=== PATIENT | male | born 1980 | race Caucasian/White ===

== ENCOUNTER 2021-07-16 15:34 | Inpatient (IN) | payer OTHER ==
[2021-07-16] MEDS ORDERED: BISMUTH SUBSALICYLATE 524 MG/30 ML PO PRN (16:57)
[2021-07-16] MEDS ORDERED: BENZOCAINE/MENTHOL (CHLORASEPTIC ) LOZENGE MM PRN (16:57)
[2021-07-16] MEDS ORDERED: hydrOXYzine PAMOATE 25 MG CAPSULE (FP) PO PRN (16:57)
[2021-07-16] MEDS ORDERED: MAG HYDROX/AL HYDROX/SIMETH 30 ML UNIT-DOSE CUP PO PRN (16:57)
[2021-07-16] MEDS ORDERED: LOPERAMIDE HCL 2 MG CAPSULE PO PRN (16:57)
[2021-07-16] MEDS ORDERED: ACETAMINOPHEN 325 MG TABLET (FP) PO PRN ×2 (16:57)
[2021-07-16] MEDS ORDERED: DICYCLOMINE HCL 10 MG CAPSULE PO PRN (16:57)
[2021-07-16] MEDS ORDERED: ONDANSETRON *ODT* 4 MG TABLET SL PRN (16:57)
[2021-07-16] MEDS ORDERED: MAGNESIUM HYDROX 2400MG/30ML ORAL SUSPENSION 30 ML CUP PO PRN (16:57)
[2021-07-16] MEDS ORDERED: MAGNESIUM CITRATE 300 ML BOTTLE PO PRN (16:57)
[2021-07-16 17:25] VITALS: BMI 21.9
[2021-07-16] MEDS: NICOTINE 10 MG CARTRIDGE (INHALER) IH PRN ×2 (19:25→22:26)
[2021-07-16] MEDS: IBUPROFEN 400 MG TABLET (FP) PO PRN (19:26)
[2021-07-16] MEDS: chlordiazePOXIDE HCL 25 MG CAPSULE PO SCH ×2 (19:27→22:25)
[2021-07-16] MEDS: METHOCARBAMOL 500 MG TABLET PO PRN (19:27)
[2021-07-16] MEDS: MELATONIN 5 MG TABLETS PO SCH (22:23)
[2021-07-16] MEDS: cloNIDine HCL 0.1 MG TABLET PO SCH (22:24)
[2021-07-16] MEDS: DOCUSATE SODIUM 100 MG CAPSULE (FP) PO SCH (22:24)
[2021-07-16] MEDS: THIAMINE HCL 100 MG TABLET (FP) PO SCH (22:24)
[2021-07-17] MEDS: NICOTINE POLACRILEX 4 MG GUM BUC PRN ×3 (04:01→18:21)
[2021-07-17] MEDS: chlordiazePOXIDE HCL 25 MG CAPSULE PO SCH ×4 (05:23→22:11)
[2021-07-17] MEDS: DOCUSATE SODIUM 100 MG CAPSULE (FP) PO SCH ×3 (05:24→23:36)
[2021-07-17] MEDS: METHOCARBAMOL 500 MG TABLET PO PRN ×3 (07:27→22:09)
[2021-07-17] MEDS: chlordiazePOXIDE HCL 25 MG CAPSULE PO PRN ×2 (07:27→13:10)
[2021-07-17] MEDS ORDERED: NICOTINE 21 MG/24 HOURS TOPICAL PATCH TD SCH (10:00)
[2021-07-17] MEDS: cloNIDine HCL 0.1 MG TABLET PO SCH ×2 (10:12→22:09)
[2021-07-17] MEDS: PRENATAL VITAMINS W/ FOLIC ACID TABLET (FP) PO SCH (10:12)
[2021-07-17 12:42] LABS: HEMATOCRIT 44.3 % (35.4-49); HEMOGLOBIN 14.6 GM/dL (11.7-16.9); MCH 31.5 pg (25.7-33.7); MEAN CELL VOLUME 95.6 fl (80-96); MEAN PLT VOLUME 7.1 fl (7.5-11.1); PLATELET COUNT 182 10^3/uL (134-434); RBC 4.63 M/mm3 (4.00-5.60); RDW 13.7 % (11.9-15.9); WHITE BLOOD COUNT 4.7 K/mm3 (4.0-10.0)
[2021-07-17 12:53] LABS: CALCIUM 9.6 mg/dL (8.5-10.1)
[2021-07-17 12:54] LABS: ALBUMIN 4.4 g/dl (3.4-5.0); BLOOD UREA NITROGEN 10.8 mg/dL (7-18)
[2021-07-17 12:57] LABS: CREATININE 0.8 mg/dL (0.55-1.3)
[2021-07-17 13:02] LABS: BILIRUBIN,TOTAL 1.2 mg/dL (0.2-1); TOT PROT 7.9 g/dl (6.4-8.2)
[2021-07-17] MEDS: GABAPENTIN 300 MG CAPSULE PO SCH ×2 (13:03→22:09)
[2021-07-17] MEDS: NICOTINE 10 MG CARTRIDGE (INHALER) IH PRN (17:49)
[2021-07-17] MEDS: IBUPROFEN 400 MG TABLET (FP) PO PRN (18:20)
[2021-07-17] MEDS: THIAMINE HCL 100 MG TABLET (FP) PO SCH (22:09)
[2021-07-17] MEDS: ARIPiprazole 10 MG TABLET PO SCH (22:09)
[2021-07-17] MEDS: MELATONIN 5 MG TABLETS PO SCH (22:10)
[2021-07-18] MEDS: GABAPENTIN 300 MG CAPSULE PO SCH (05:45)
[2021-07-18] MEDS: chlordiazePOXIDE HCL 25 MG CAPSULE PO SCH ×4 (05:45→22:38)
[2021-07-18] MEDS: DOCUSATE SODIUM 100 MG CAPSULE (FP) PO SCH ×3 (05:52→22:36)
[2021-07-18] MEDS: NICOTINE 10 MG CARTRIDGE (INHALER) IH PRN ×3 (06:06→17:26)
[2021-07-18] MEDS: PRENATAL VITAMINS W/ FOLIC ACID TABLET (FP) PO SCH (10:28)
[2021-07-18] MEDS: cloNIDine HCL 0.1 MG TABLET PO SCH ×2 (10:28→22:37)
[2021-07-18] MEDS: NICOTINE POLACRILEX 4 MG GUM BUC PRN ×6 (10:31→22:41)
[2021-07-18] MEDS: GABAPENTIN 400 MG CAPSULE PO SCH ×3 (13:04→22:38)
[2021-07-18 16:08] LABS: SARS-CoV-2 NAA Not Detected (Not Detected)
[2021-07-18] MEDS: chlordiazePOXIDE HCL 25 MG CAPSULE PO PRN (19:56)
[2021-07-18] MEDS: MELATONIN 5 MG TABLETS PO SCH (22:38)
[2021-07-18] MEDS: ARIPiprazole 10 MG TABLET PO SCH (22:38)
[2021-07-18] MEDS: THIAMINE HCL 100 MG TABLET (FP) PO SCH (22:38)
[2021-07-19] MEDS ORDERED: chlordiazePOXIDE HCL 10 MG CAPSULE PO PRN
[2021-07-19] MEDS: DOCUSATE SODIUM 100 MG CAPSULE (FP) PO SCH ×2 (05:35→13:20)
[2021-07-19] MEDS: chlordiazePOXIDE HCL 10 MG CAPSULE PO SCH ×2 (05:35→10:07)
[2021-07-19] MEDS: NICOTINE POLACRILEX 4 MG GUM BUC PRN ×2 (08:26→10:37)
[2021-07-19] MEDS: GABAPENTIN 400 MG CAPSULE PO SCH ×2 (10:07→13:20)
[2021-07-19] MEDS: PRENATAL VITAMINS W/ FOLIC ACID TABLET (FP) PO SCH (10:07)
[2021-07-19] MEDS: cloNIDine HCL 0.1 MG TABLET PO SCH (10:07)
[2021-07-19] MEDS: METHOCARBAMOL 500 MG TABLET PO PRN (13:53)
[2021-07-19 15:03] VITALS: BP 121/84; PULSE 68; TEMP 97.1
[2021-07-20] MEDS ORDERED: chlordiazePOXIDE HCL 10 MG CAPSULE PO SCH (05:00)
[2021-07-21] MEDS ORDERED: chlordiazePOXIDE HCL 10 MG CAPSULE PO ONE (05:00)
== END 2021-07-19 15:29 | disposition left against medical advice (07) | DRG 770 ==
LOC: YASAS 15:34 → Y3N 16:54
PROVIDERS: ADMIT Allergy & Immunology; ATTEND Surgery
PROC: HZ2ZZZZ Detoxification Services for Substance Abuse Treatment (ICD-10-PCS; principal; 2021-07-16)
DX: F10.230 Alcohol dependence with withdrawal, uncomplicated (principal); F13.10 Sedative, hypnotic or anxiolytic abuse, uncomplicated; F17.210 Nicotine dependence, cigarettes, uncomplicated; F19.280 Other psychoactive substance dependence with psychoactive substance-induced anxiety disorder; F32.9 Major depressive disorder, single episode, unspecified; F41.9 Anxiety disorder, unspecified; F98.8 Other specified behavioral and emotional disorders with onset usually occurring in childhood and adolescence
CPT/HCPCS: 36415; 80053; 85027; 86780; 93005; 93010; C9803-CS; J0735; U0003; U0005